=== PATIENT | female | born 1935 | race Hispanic/Latino ===

== ENCOUNTER → 2019-03-30 | Outpatient (CLI) | payer MEDICARE, OTHER | END | disposition home or self-care (01) | LOC: RAH 10:00 | PROVIDERS: ATTEND Psychiatry & Neurology Neurology | DX: G91.2 (Idiopathic) normal pressure hydrocephalus (principal); R41.3 Other amnesia | CPT/HCPCS: 70450 ==

== ENCOUNTER → 2020-10-17 | Outpatient (CLI) | payer MEDICARE, OTHER | END | disposition home or self-care (01) | LOC: RAH 14:01 | PROVIDERS: ATTEND Otolaryngology | DX: J32.8 Other chronic sinusitis (principal); J34.1 Cyst and mucocele of nose and nasal sinus | CPT/HCPCS: 70486 ==

== ENCOUNTER 2023-06-21 22:08 | Emergency (ER) | payer MEDICARE, OTHER ==
[~2023-06-21] VITALS: Ht 162.6 cm; Wt 84.4 kg
[2023-06-21 22:59] LABS: BASOPHILS # (AUTO) 0.04 K/uL (0.00-0.20); BASOPHILS % (AUTO) 0.5 % (0.0-5.0); EOSINOPHILS # (AUTO) 0.34 K/uL (0.00-0.70); EOSINOPHILS % (AUTO) 4.5 % (0.0-8.0); HEMATOCRIT 36.7 % (36-48); IMMATURE GRANULOCYTE ABSOLUTE 0.03 K/uL (0-1); LYMPHOCYTES # (AUTO) 1.7 K/uL (1.0-4.8); MEAN CORPUSCULAR HEMOGLOBIN 31.3 pg (27.0-33.0); MEAN CORPUSCULAR HGB CONC 34.3 g/dL (32.0-36.0); MEAN CORPUSCULAR VOLUME 91.3 fL (79-99); MONOCYTES # (AUTO) 0.8 K/uL (0.1-1.0); MONOCYTES % (AUTO) 10.9 % (3.0-13.0); NEUTROPHILS # (AUTO) 4.7 K/uL (1.8-7.7); NEUTROPHILS % (AUTO) 61.7 % (40.0-77.0); PLATELET COUNT (AUTO) 309 K/uL (130-400); RED BLOOD CELL COUNT(AUTO) 4.02 MIL/uL (4.00-5.50); RED CELL DISTRIBUTION WIDTH 12.6 % (11.0-15.5); WHITE BLOOD COUNT (AUTO) 7.6 K/uL (4.8-10.8)
[2023-06-21 23:16] LABS: CARBON DIOXIDE 28 mmol/L (21-32); CHLORIDE 98 mmol/L (101-111); CREATININE 1.2 mg/dL (0.5-1.5); GLOMERULAR FILTR. RATE CALC 44 mL/min (>90); GLUCOSE,RANDOM 129 mg/dL (70-105); SODIUM SERUM 135 mmol/L (136-145); UREA NITROGEN, BLOOD 19 mg/dL (7-18)
[2023-06-21 23:18] LABS: INR <= 0.93 (0.85-1.15); PROTHROMBIN TIME 10.8 SEC (9.6-11.6)
[2023-06-21 23:19] LABS: PARTIAL THROMBOPLASTIN TIME 27.6 SEC (26.3-35.5)
[2023-06-21 23:20] LABS: ALANINE AMINOTRANSFERASE 21 U/L (12-78); ALBUMIN 3.8 g/dL (3.5-5.0); ALCOHOL, BLOOD < 3 mg/dL (0-10); ASPARTATE AMINOTRANSFERASE 20 U/L (10-37); BILIRUBIN,TOTAL 0.4 mg/dL (0.2-1.0); TOTAL PROTEIN, SERUM 7.2 g/dL (6.0-8.3)
[2023-06-21] MEDS ORDERED: IOHEXOL 350 MG/ML 100ML INFUS..BTL IV ONE (23:37)
[2023-06-22] MEDS: LIDOCAINE HCL 1% 20 ML VIAL INJ SCH (00:50)
[2023-06-22] MEDS: LIDOCAINE HCL 1% 20 ML VIAL ONE (00:50)
[2023-06-22] MEDS: ONDANSETRON 4MG INJ IVP ONE (01:11)
[2023-06-22] MEDS: LIDOCAINE HCL 2% VISCOUS 15 ML UDCUP PO ONE (01:11)
[2023-06-22] MEDS: ONDANSETRON 4MG INJ ONE (01:12)
[2023-06-22] MEDS: MORPHINE 2 MG SYG ONE (01:12)
[2023-06-22] MEDS: LIDOCAINE HCL 2% VISCOUS 15 ML UDCUP ONE (01:12)
[2023-06-22] MEDS: MORPHINE 2 MG SYG IVP ONE (01:12)
[2023-06-22 01:21] LABS: ADD UA MICROSCOPIC NO; APPEARANCE,URINE CLEAR (CLEAR); BILIRUBIN,URINE NEGATIVE (NEGATIVE); COLOR,URINE COLORLESS (YELLOW); GLUCOSE, URINE (UA) NEGATIVE (NEGATIVE); KETONES,URINE NEGATIVE (NEGATIVE); LEUKOCYTE ESTERASE ,URINE NEGATIVE Leu/uL (NEGATIVE); NITRATE,URINE NEGATIVE (NEGATIVE); OCCULT BLOOD,URINE NEGATIVE (NEGATIVE); PROTEIN,URINE NEGATIVE (NEGATIVE); UROBILINOGEN,URINE 0.2 mg/dL (0.2-1.0)
[2023-06-22] MEDS ORDERED: IBUP-1493 PO (02:10)
[2023-06-22 02:55] VITALS: BP 128/76; PULSE 80; RESP 18; O2SAT 98
== END 2023-06-22 03:15 | disposition home or self-care (01) ==
LOC: EDH 22:08
DX: S01.511A Laceration without foreign body of lip, initial encounter (principal); S09.90XA Unspecified injury of head, initial encounter; S80.02XA Contusion of left knee, initial encounter; S80.01XA Contusion of right knee, initial encounter; R07.89 Other chest pain; E11.9 Type 2 diabetes mellitus without complications; I10 Essential (primary) hypertension; Z79.1 Long term (current) use of non-steroidal anti-inflammatories (NSAID); Z88.2 Allergy status to sulfonamides; W22.8XXA Striking against or struck by other objects, initial encounter; Y93.01 Activity, walking, marching and hiking; Y92.89 Other specified places as the place of occurrence of the external cause; Y99.8 Other external cause status
CPT/HCPCS: 99285; 70450; 71045; 84484; 80053; 85025; 85610; 85730; 81003; 36415; 73564; 72125; 71260; 70486; 74177; 96374; 96375; 12011; 93005; Q9967; J2270; J2405

== ENCOUNTER → 2023-07-28 | Outpatient (CLI) | payer MEDICARE, OTHER ==
[~2023-07-28] MED LIST: IBUP-1493 PO
== END | disposition home or self-care (01) ==
LOC: RAH 15:02
PROVIDERS: ATTEND Internal Medicine
DX: M54.14 Radiculopathy, thoracic region (principal); R07.81 Pleurodynia
CPT/HCPCS: 71110; 72070

== ENCOUNTER → 2024-02-03 | Outpatient (CLI) | payer MEDICARE, OTHER | END | disposition home or self-care (01) | LOC: RAH 10:47 | PROVIDERS: ATTEND Internal Medicine | DX: M25.562 Pain in left knee (principal) | CPT/HCPCS: 73560 ==

== ENCOUNTER → 2025-02-15 | Outpatient (CLI) | payer MEDICARE, OTHER ==
[~2025-02-15] MED LIST changes: +CEFU500T67 PO; +MOM30 PO; +PHEN-776 PO
--- NOTE | 2025-02-15 16:51 | HMCIMG ---
EXAM: CT Chest without Intravenous Contrast. CT Abdomen and Pelvis without Intravenous Contrast. CLINICAL HISTORY: Chest pain with inspiration. TECHNIQUE: Helical computed tomography of the chest, abdomen, and pelvis was performed without intravenous or oral contrast from the thoracic inlet through the ischial tuberosities. Axial images with coronal and sagittal reformations were obtained. Lung and soft-tissue reconstruction algorithms were reviewed. Radiation dose optimization followed the principles of ???as low as reasonably achievable.??? Evaluation of vascular structures, solid-organ enhancement, and subtle inflammatory change is limited in the absence of intravenous contrast. CONTRAST: Without. COMPARISON: None available. FINDINGS: CHEST: LUNGS: The tracheobronchial tree is patent without endoluminal lesion. There is no focal pulmonary infiltrate identified. There is a subpleural fibrotic band in the right lower lobe. PLEURAL SPACES: No pleural effusion. No pneumothorax. HEART AND MEDIASTINUM: The heart size is within normal limits. There is no pericardial effusion. There are moderate coronary artery calcifications. The thoracic aorta is normal in caliber with moderate atherosclerotic calcification. There is no mediastinal or hilar lymphadenopathy by size criteria. LYMPH NODES: No mediastinal or hilar lymphadenopathy by size criteria. BONES AND SOFT TISSUES: The visualized soft tissues of the chest wall are unremarkable. The lower neck and chest wall structures are without acute abnormality. The visualized osseous structures of the thoracic spine show degenerative changes without acute fracture. ABDOMEN AND PELVIS: LIVER: The liver is normal in size, contour, and attenuation with smooth margins and no focal lesion identified on this noncontrast examination. There is no intrahepatic or extrahepatic biliary ductal dilatation; the suzan hepatis appears unremarkable. The portal vein, hepatic veins, and inferior vena cava are normal in caliber on this noncontrast study. GALLBLADDER AND BILE DUCTS: The gallbladder demonstrates normal wall thickness with smooth contour and homogeneous intraluminal fluid density without calcified gallstones; the adjacent fat planes are preserved and the cystic duct appears unremarkable. No ductal dilation. PANCREAS: The pancreas is normal in size, contour, and attenuation without ductal dilatation, peripancreatic fluid, or fat stranding. SPLEEN: The spleen is normal in size and attenuation without focal lesion. ADRENAL GLANDS: Both adrenal glands are normal in morphology and attenuation. KIDNEYS, URETERS, AND BLADDER: Both kidneys are normal in size, shape, position, and attenuation without hydronephrosis or nephrolithiasis. 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 Per consensus, no follow-up is needed for simple Bosniak type 1 and 2 renal cysts, unless the patient has a malignancy history or risk factors. No ureteral or bladder calculi. The urinary bladder demonstrates normal wall thickness and contour. STOMACH AND BOWEL: The stomach is distended and unremarkable in contour. The gastroesophageal junction, pylorus, and duodenum are unremarkable. The jejunal and ileal loops are normal in caliber and distribution without abnormal wall thickening. The mesenteric fat and omentum are preserved without inflammatory stranding or nodularity. The colon and rectum contain fecal material without evidence of obstruction. No CT evidence of colitis or acute diverticulitis. APPENDIX: The appendix is unremarkable without surrounding inflammatory change. PERITONEUM: No free intraperitoneal fluid and no free intraperitoneal air. LYMPH NODES: No pathologically enlarged lymph nodes are identified in the abdomen or pelvis. REPRODUCTIVE: The uterus is surgically absent. VASCULATURE: The abdominal aorta and inferior vena cava are normal in course and caliber with mild atherosclerotic calcification of the abdominal aorta. No aortic aneurysm. BONES AND SOFT TISSUES: A moderate sized lipoma in the right hip muscles is seen. The visualized osseous structures of the lumbar spine show degenerative changes without acute fracture. The extra-abdominal and paraspinal soft tissues are unremarkable. LIMITATIONS/ARTIFACTS: Image quality is adequate; evaluation for vascular pathology and subtle enhancement-based abnormalities is limited by the noncontrast technique. IMPRESSION: 1. Moderate coronary artery calcifications. 2. Moderate atherosclerotic calcification of the thoracic and abdominal aorta. 3. 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 No follow-up needed per consensus for simple Bosniak type 1 and 2 renal cysts. 4. 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 5. Degenerative changes of the thoracic and lumbar spine without acute fracture. 6. Subpleural fibrotic band in the right lower lobe. 7. Status post hysterectomy. /[place]
== END | disposition home or self-care (01) ==
LOC: RAH 13:45
PROVIDERS: ATTEND Internal Medicine
DX: N28.1 Cyst of kidney, acquired (principal); I70.0 Atherosclerosis of aorta; D17.9 Benign lipomatous neoplasm, unspecified; M47.814 Spondylosis without myelopathy or radiculopathy, thoracic region; M47.816 Spondylosis without myelopathy or radiculopathy, lumbar region; R06.6 Hiccough; R07.1 Chest pain on breathing; R53.83 Other fatigue; E11.42 Type 2 diabetes mellitus with diabetic polyneuropathy; R42 Dizziness and giddiness; H91.90 Unspecified hearing loss, unspecified ear; E66.01 Morbid (severe) obesity due to excess calories; Z78.0 Asymptomatic menopausal state; G72.0 Drug-induced myopathy; R26.9 Unspecified abnormalities of gait and mobility; G30.9 Alzheimer's disease, unspecified; I25.10 Atherosclerotic heart disease of native coronary artery without angina pectoris; Z90.710 Acquired absence of both cervix and uterus
CPT/HCPCS: 71250; 74176